=== PATIENT | female | born 1950 | race Caucasian/White ===

== ENCOUNTER → 2019-05-25 12:24 | Outpatient (CLI) | payer MEDICARE, MEDICAID, SELFPAY ==
--- NOTE | ~2019-05-25 | XR_ITS ---
EXAMINATION: XR knee RT 3V DATE: 05/25/2019 12:36 INDICATION: Right knee pain. TECHNIQUE: 3 views of right knee were obtained. COMPARISON: None. FINDINGS: Bone alignment is normal. No fracture. There is mild tricompartmental osteoarthritis. There is a small knee joint effusion. IMPRESSION: 1. Mild right knee osteoarthritis. 2. Small right knee joint effusion. Reviewed, dictated and finalized at location A. ETHYLENE COMBINER
== END ==
PROVIDERS: PCP Internal Medicine; Visit Provider Nurse Practitioner
DX: M25.461 Effusion, right knee (principal); M17.11 Unilateral primary osteoarthritis, right knee
CPT/HCPCS: 73562

== ENCOUNTER 2019-06-08 12:08 | Outpatient (RCR) | payer MEDICARE, MEDICAID, SELFPAY ==
--- NOTE | 2019-06-08 13:43 | PTOPEVAL ---
Thank you for referring this patient to [facility]. Please review, sign, date and return this plan of care GISELA. Pt referred to therapy due to right knee pain. She demonstrates impairments associated with muscle weakness, decreased motion, soft tissue restrictions and increased pain. She requires additional skilled therapy 2x/wk x 8 wk to achieve therapy goals. I agree with and certify that the following plan of care is medically necessary. Referring Physician Date Attending Provider: Loan Camejo NP Referring Provider: *PT Outpatient Evaluation Start: 06/08/19 12:28 Freq: Status: Active Protocol: Document 06/08/19 12:30 CAP (Rec: 06/08/19 13:29 CAP [id number]) Therapy Assessment Status Assessment Status Assessment Status Evaluation Outpatient Past Medical History Respiratory History Hx Chronic Obstructive Pulmonary Disease Yes (COPD) Musculoskeletal History Hx Rheumatoid Arthritis Yes Psychosocial History Hx Depression Yes Other History Hx Cancer Yes: lung, 5 years ago Hx Chemotherapy Yes Hx Radiation Therapy Yes Evaluation Information Problem Diagnosis right knee pain with OA Onset 04/18/19 Cause unknown Subjective Information Apr 18 she reports she was Query Text:As Reported By Patient/ sleeping when she rolled and Family felt something in her knee move . She c/o sharp pain into her right lower leg region and right knee since then. She reports tenderness of the side of her knee. Denies a specific activity that increases her pain. She reports increased stiffness with prolonged position. STates the sharp knee/lower leg pain will come out of nowhere and regardless of activity. She report increased pain with steps. Denies problems with carrying objects. Reports prior to Mar she did not have any knee pain . Denies use of AD in the past . Reports limitations with IADL's. She has used ice/heat and ibuprofen for the pain. Reports she has gained 23# over the past 1 1/2 years. Prior Level of Function
--- NOTE | 2019-07-06 10:26 | PCPTNOTE ---
Admitting Provider: Attending Provider: Loan Bowman NP Patient:Jaye Whitney Date of :1950 Patient has not returned for any further treatments since 06/08/2019, therefore she will be discharged from therapy at this time. The goals have not been achieved due to pt was seen for evaluation only. Thank you for referring this patient to [facility]. Please review, sign, date and return this discharge summary GISELA. I have been updated about the patient's current status and I agree with discharge from the above service at this time. Referring Physician Date
== END 2019-07-06 11:20 | disposition home or self-care (01) ==
LOC: ANHPT 12:08
PROVIDERS: PCP Internal Medicine; Visit Provider Nurse Practitioner
DX: M25.561 Pain in right knee (principal)
CPT/HCPCS: 97110; 97162